=== PATIENT | male | born 1985 | race Caucasian/White ===

== ENCOUNTER → 2019-11-13 15:26 | Outpatient (CLI) | payer BC, SELFPAY ==
[2018-08-15 15:41] VITALS: BMI 24.7
--- NOTE | 2019-11-13 15:30 | RAD_ITS ---
STUDY: X-RAY CHEST REASON FOR EXAM: Male, 34 years old. POSITIVE TB TEST, NO CHEST COMPLAINTS TECHNIQUE: PA and lateral COMPARISON: 06/17/2015 FINDINGS: The lungs are clear and expanded. There is no demonstrated pleural abnormality. Normal size heart. Normal mediastinum and nicholas. Normal visualized pulmonary arteries. Normal visualized aortic arch and descending thoracic aorta. Normal visualized thoracic spine. Normal visualized ribs, clavicles, and shoulders. There is no demonstrated abnormality of the visualized soft tissue structures of the upper abdomen. No change since prior exam RAD/Chest PA and Lateral IMPRESSION: Normal x-ray examination of the chest. No evidence for active tuberculosis Electronically Signed: Gallo Leach MD at 22:57 EDT , Service support ,
== END ==
PROVIDERS: PCP Family Medicine; Referring Provider Family Medicine; Visit Provider Family Medicine
DX: R76.11 Nonspecific reaction to tuberculin skin test without active tuberculosis (principal)
CPT/HCPCS: 71046

== ENCOUNTER → 2020-09-27 06:56 | Outpatient (CLI) | payer OTHER, SELFPAY ==
[2020-07-08 16:39] VITALS: BMI 23.6
[2020-09-27 07:30] LABS: Absolute Lymphocyte Count 2.03 X10^3/uL (0.83-4.51); Absolute Neutrophil Count 3.8 X10^3/uL (2.0-7.7); Basophil# 0.04 X10^3/uL; Basophil% 0.6 % (0-1); Eosinophil# 0.13 X10^3/uL; Hematocrit 44.5 % (40-54); Hemoglobin 14.2 g/dL (13.0-16.5); Lymphocyte # 2.03 X10^3/ul (0.83-4.51); Lymphocyte % 30.7 % (19-41); Mean Corp Hgb Conc 31.9 g/dL (32-36); Mean Corpuscular Hgb 25.4 pg (27.0-32.0); Mean Corpuscular Volume 79.5 fL (80-94); Mean Platelet Vol. 8.6 fl (6.2-12.0); Monocyte# 0.64 X10^3/uL; Monocyte% 9.7 % (0-10); NRBC Flagged by Analyzer 0 % (0-5); Neutrophil # 3.76 X10^3/uL (2.7-7.7); Neutrophil % 56.7 % (47-70); Platelet Count 241 K/mm3 (150-450); RBC Distribution Width CV 13.4 % (11.6-14.6); RBC Distribution Width SD 38.1 fl (35.1-43.9); White Blood Count 6.6 K/mm3 (4.4-11.0)
[2020-09-27 08:16] LABS: AST(SGOT) 17 U/L (15-37); Alanine Aminotransfer ALT/SGPT 21 U/L (16-61); Alkaline Phosphatase 94 U/L (45-117); Bilirubin, Direct 0.18 mg/dL (0.00-0.30); Cholesterol 187 mg/dL (200); Globulin 3.5 g/dL (2.2-4.2); High Density Lipoprotein 48 mg/dL; Protein, Total 7.5 g/dL (6.4-8.2); Triglycerides 88 mg/dL; Very Low Density Lipoprotein 18 mg/dL (5-40)
== END ==
PROVIDERS: PCP Family Medicine; Referring Provider Physician Assistant Medical; Visit Provider Physician Assistant Medical
DX: L70.0 Acne vulgaris (principal); Z79.899 Other long term (current) drug therapy
CPT/HCPCS: 36415; 80061; 80076; 85025

== ENCOUNTER → 2021-02-05 07:32 | Outpatient (CLI) | payer OTHER, SELFPAY ==
[2021-02-05 10:30] LABS: Absolute Lymphocyte Count 1.66 X10^3/uL (0.83-4.51); Absolute Neutrophil Count 2.4 X10^3/uL (2.0-7.7); Basophil# 0.02 X10^3/uL; Basophil% 0.4 % (0-1); Eosinophil# 0.14 X10^3/uL; Hematocrit 44.2 % (40-54); Hemoglobin 13.9 g/dL (13.0-16.5); Lymphocyte # 1.66 X10^3/ul (0.83-4.51); Lymphocyte % 35.3 % (19-41); Mean Corp Hgb Conc 31.4 g/dL (32-36); Mean Corpuscular Volume 79.6 fL (80-94); Mean Platelet Vol. 9.4 fl (6.2-12.0); Monocyte# 0.47 X10^3/uL; NRBC Flagged by Analyzer 0 % (0-5); Neutrophil % 51.1 % (47-70); Platelet Count 242 K/mm3 (150-450); RBC Distribution Width CV 13.5 % (11.6-14.6); RBC Distribution Width SD 39.1 fl (35.1-43.9); Red Blood Count 5.55 M/mm3 (4.6-6.2); White Blood Count 4.7 K/mm3 (4.4-11.0)
[2021-02-05 10:51] LABS: AST(SGOT) 27 U/L (15-37); Alanine Aminotransfer ALT/SGPT 29 U/L (16-61); Albumin, Serum 3.7 g/dL (3.2-5.0); Alkaline Phosphatase 93 U/L (45-117); Bilirubin, Direct 0.14 mg/dL (0.00-0.30); Cholesterol 178 mg/dL (200); Globulin 4.5 g/dL (2.2-4.2); High Density Lipoprotein 39 mg/dL; Protein, Total 8.2 g/dL (6.4-8.2); Triglycerides 85 mg/dL; Very Low Density Lipoprotein 17 mg/dL (5-40)
[2021-02-06 13:47] LABS: LDL, Direct 120295 126 mg/dL (0-99)
== END ==
PROVIDERS: PCP Family Medicine
DX: L70.0 Acne vulgaris (principal); L66.2 Folliculitis decalvans; Z79.899 Other long term (current) drug therapy
CPT/HCPCS: 36415; 80061; 80076; 83721; 85025

== ENCOUNTER → 2021-11-14 | Outpatient (CLI) | payer OTHER, SELFPAY ==
[2021-11-16 08:56] LABS: Hepatitis B Surface Antibody Reactive
[2021-11-19 18:07] LABS: HEPATITIS B SURFACE AG Negative (Negative); Hep C Antibodies <0.1 s/co ratio (0.0-0.9); Hepatitis A IgM Antibody Negative (Negative); Hepatitis B Core AB IgM Negative (Negative); QNTFERON TB Mitogen Value > 10.00 IU/mL (.); QNTFERON TB Nil Value 0.03 IU/mL (.); QNTFERON TB1+ Ag Value 0.09 IU/mL (.); QNTFERON TB2+ Ag Value 0.17 IU/mL (.)
[2021-11-20 17:48] LABS: Hepatitis A AB, Total Positive (Negative); QNTIFERON TB Positive Criteria Negative (Negative)
== END | disposition home or self-care (01) ==
LOC: LAB 08:14
PROVIDERS: PCP Family Medicine; Referring Provider Physician Assistant Medical; Visit Provider Physician Assistant Medical
DX: L66.2 Folliculitis decalvans (principal); Z79.899 Other long term (current) drug therapy
CPT/HCPCS: 36415; 80074; 86480; 86706; 86708

== ENCOUNTER → 2022-03-01 | Outpatient (CLI) | payer BC, SELFPAY ==
--- NOTE | 2022-03-01 15:57 | RAD_ITS ---
EXAM: XR CHEST, 2 VIEWS CLINICAL INDICATION: h/o positive PPD TECHNIQUE: Frontal and lateral views of the chest. This report was created using [employer] report generation technology. COMPARISON: XR Chest dated 11/13/2019 FINDINGS: LUNGS AND PLEURAL SPACES: Normal. No consolidation or edema. No pneumothorax. No effusion. HEART: Normal heart size. MEDIASTINUM: No mediastinal or hilar mass. BONES/JOINTS: No acute abnormality. SOFT TISSUES: Normal. RAD/Chest PA and Lateral IMPRESSION: No acute cardiopulmonary abnormality. No interval change. No evidence of active tuberculosis Electronically Signed: Octavio Romano MD at 16:59 EST ,
== END | disposition home or self-care (01) ==
LOC: RAD 15:49
PROVIDERS: PCP Family Medicine; Referring Provider Family Medicine; Visit Provider Family Medicine
DX: R76.11 Nonspecific reaction to tuberculin skin test without active tuberculosis (principal)
CPT/HCPCS: 71046

== ENCOUNTER → 2024-05-31 | Outpatient (CLI) | payer BC, SELFPAY ==
--- NOTE | 2024-05-31 09:39 | RAD_ITS ---
PROCEDURE: CHEST PA AND LATERAL REASON FOR EXAM: Positive TB test in the past. TECHNIQUE: Frontal and lateral views of the chest. COMPARISON: Chest x-ray 03/01/2022.. RAD/Chest PA and Lateral IMPRESSION: Lungs appear clear of acute disease, and unchanged. No focal abnormality is no americo. No pleural effusion or pneumothorax is seen. The cardiomediastinal silhouette is within the normal range, and unchanged. No significant osseous abnormality is seen. No evidence of active disease. Reading Location: [id number]
== END | disposition home or self-care (01) ==
LOC: MTRAD 09:38
PROVIDERS: PCP Family Medicine
DX: Z22.7 Latent tuberculosis (principal)
CPT/HCPCS: 71046